=== PATIENT | female | born 1960 | race African-American/Black ===

== ENCOUNTER 2017-06-03 06:00 | Emergency (ER) | payer MEDICAID, OTHER ==
[~2017-06-03] VITALS: Ht 160 cm; Wt 49.9 kg
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
[2017-06-03 06:10] VITALS: BP 117/86
[2017-06-03 07:14] LABS: BASOPHILS % (AUTO) 2.1 % (0.0-2.0); EOSINOPHILS % (AUTO) 1.5 % (0.0-3.0); LYMPHOCYTES % (AUTO) 22.7 % (20.0-45.0); MEAN CORPUSCULAR HEMOGLOBIN 29.4 PG (27.0-31.0); MEAN CORPUSCULAR HGB CONC 32.7 G/DL (32.0-36.0); MEAN CORPUSCULAR VOLUME 90 FL (80-99); MEAN PLATELET VOLUME 12.8 FL (6.5-10.1); NEUTROPHILS % (AUTO) 65.7 % (45.0-75.0); PLATELET COUNT 189 K/UL (150-450); RED BLOOD COUNT 4.69 M/UL (4.20-5.40); RED CELL DISTRIBUTION WIDTH 11.5 % (11.6-14.8)
[2017-06-03] MEDS ORDERED: Morphine Sulfate 2mg/ml Inj IVP ONE (07:30)
[2017-06-03 07:34] LABS: ALANINE AMINOTRANSFERASE 11 U/L (3-33); ALBUMIN/GLOBULIN RATIO 1.6 (1.0-2.7); ALCOHOL < 10 mg/dL; ANION GAP 9 (5-15); ASPARTATE AMINO TRANSFERASE 21 U/L (5-40); CALCIUM 9.6 mg/dL (8.6-10.2); CARBON DIOXIDE 29 mEQ/L (20-30); CHLORIDE 101 mEQ/L (98-107); CREATININE 0.8 mg/dL (0.5-0.9); GLOMERULAR FILTRATION RATE > 60 mL/min (>60); HEMOLYSIS 18; POTASSIUM 4.2 mEQ/L (3.4-4.9); SODIUM 139 mEQ/L (135-145); TOTAL PROTEIN 7.1 g/dL (6.6-8.7)
[2017-06-03 08:25] VITALS: BP 102/75
--- NOTE | 2017-06-03 08:59 | Diagnostic Imaging Report ---
Indication: Head pain Technique: Continuous helical CT scanning of the head was performed utilizing automated exposure control without intravenous contrast material. Axial and coronal reconstructions were obtained. Comparison: None CT dose: Total DLP 1193 mGycm; CTDI vol 70.4 mGy Findings: There is no acute intracranial hemorrhage, mass effect or cortical edema. The ventricles, cisterns and sulci are within normal limits. The posterior fossa and fourth ventricle are unremarkable. Sellar and suprasellar regions are grossly unremarkable. Visualized mastoid air cells and paranasal sinuses are unremarkable. No focal lesions of the bony calvarium or soft tissues of the scalp are seen. Impression: No evidence of acute intracranial hemorrhage, mass effect or cortical edema. MRI may be obtained for more sensitive evaluation as clinically indicated. The CT scanner at [facility] is accredited by the [employer] and the scans are performed using protocols designed to limit radiation exposure to as low as reasonably achievable to attain images of sufficient resolution adequate for diagnostic evaluation.
--- NOTE | 2017-06-03 09:02 | Diagnostic Imaging Report ---
Indication: Abdominal pain Technique: CT of the abdomen and pelvis utilizing automated exposure control with intravenous contrast. Venous scanning performed. CT dose: Total DLP 559 mGycm; CTDI vol 12.8 mGy Comparison: None Findings: There is dependent atelectasis in the lung bases. The liver, adrenal glands, spleen and pancreas are grossly unremarkable. No CT evident gallstones are seen. A left renal cyst measures 3.4 cm. There is no hydronephrosis. No renal calculi are seen. There is limited evaluation of the bowel without oral contrast. There is no mechanical small bowel obstruction. The appendix is grossly unremarkable. There is moderate stool throughout the colon. Multiple uterine masses are identified measuring up to 3.8 cm. There is no free intraperitoneal air. Bladder is not well distended with underdistention versus mild wall thickening. The abdominal aorta is normal in caliber. Degenerative changes of the spine are present. Chronic appearing right eighth, ninth and 10th rib fracture deformities are identified. Impression: Limited evaluation of the bowel without oral contrast. No definitive evidence of appendicitis or mechanical small bowel obstruction. Moderate colonic stool. Multiple uterine masses suggestive of fibroids. Correlation with ultrasound recommended. Left renal cyst. Dependent atelectasis. Chronic appearing right eighth, ninth and 10th rib fracture deformities. The CT scanner at [facility] is accredited by the [employer] and the scans are performed using protocols designed to limit radiation exposure to as low as reasonably achievable to attain images of sufficient resolution adequate for diagnostic evaluation.
[2017-06-03 09:50] VITALS: BP 100/67
[2017-06-03 11:38] VITALS: BP 109/69
[2017-06-03 13:35] VITALS: BP 105/77
[2017-06-03 14:00] VITALS: BP 110/65
--- NOTE | 2017-06-04 08:18 | Diagnostic Imaging Report ---
Indication: Right leg pain Technique: XRAY LEG LOWER TIB/FIB 2V RIGHT Comparison: None Findings: There is no acute fracture or dislocation. Bone mineralization is normal. Soft tissues are grossly unremarkable. Impression: No acute osseous abnormality.
== END 2017-06-03 14:00 | disposition home or self-care (01) ==
LOC: EDBD 06:00 → EMR 07:10
DX: S80.11XA Contusion of right lower leg, initial encounter (principal); V43.62XA Car passenger injured in collision with other type car in traffic accident, initial encounter; Y92.411 Interstate highway as the place of occurrence of the external cause; R10.9 Unspecified abdominal pain; N28.1 Cyst of kidney, acquired; R51 Headache
CPT/HCPCS: 36415; 70450; 73590; 74177; 80053; 80329; 85025; 99284; Q9967